=== PATIENT | female | born 1945 | race Caucasian/White ===

== ENCOUNTER → 2023-11-11 | Outpatient (CLI) | payer MEDICARE, SELFPAY ==
--- NOTE | 2023-11-11 08:16 | ECHOD_ITS ---
Reason For Study: Abnormal EKG Procedure This was a 2D Doppler, Color Flow transthoracic echocardiogram. Myocardial strain analysis was performed in this exam to aid in the assessment of cardiac function. Exam performed in department. Left Ventricle Normal LV size. Mid cavitary false tendon noted. The left ventricular ejection fraction is 60 %. Stage 1 diastolic dysfunction. No regional wall motion abnormalities noted. Right Ventricle Normal RV size. Normal systolic function. Atria Normal left atrium. Normal right atrium. Mitral Valve There is mild to moderate mitral annular calcification. Mild (1+) eccentric mitral valve insufficiency. Tricuspid Valve Normal tricuspid valve. Mild (1+) tricuspid valve insufficiency. Pulmonary artery systolic pressure is 34 mmHg. Aortic Valve Trisinus/trileaflet aortic valve. Mild focal aortic valve calcification. Pulmonic Valve Normal pulmonic valve. Great Vessels Normal aortic root. The pulmonary artery is normal size. Inferior vena cava collapse with respiration. Pericardium/Pleural No pericardial effusion. MMode/2D Measurements & Calculations LVIDd: 4.9 cm IVSd: 0.94 cm LVOT diam: 2.0 cm LVIDs: 3.4 cm LVPWd: 0.76 cm LVOT area: 3.0 cm2 RVDd: 4.2 cm FS: 30.4 % Ao root diam: 3.2 cm LAV(MOD-bp): 58.2 ml LVAd ap4: 24.1 cm2 LA dimension: 3.0 cm LAV(MOD-bp) Indexed: 32.0 ml/m2 LVLd ap4: 7.5 cm LAV(MOD-sp2): 62.0 ml EDV(MOD-sp4): 63.1 ml LAV(MOD-sp4): 52.1 ml EDV(sp4-el): 65.9 ml LVAs ap4: 14.6 cm2 LVLs ap4: 6.4 cm ESV(MOD-sp4): 28.0 ml ESV(sp4-el): 28.5 ml EF(MOD-sp4): 55.7 % EF(sp4-el): 56.7 % SV(MOD-sp4): 35.2 ml SV(sp4-el): 37.4 ml LA A4 area: 19.6 cm2 RA A4 area: 17.4 cm2 TAPSE: 2.5 cm Time Measurements MV dec time: 0.25 sec Doppler Measurements & Calculations MV E max cesar: 82.0 cm/sec Lat Peak E' Cesar: 12.1 cm/sec Med Peak E' Cesar: 8.4 cm/sec MV A max cesar: 90.3 cm/sec E/E' lat: 6.8 E/E' med: 9.8 MV E/A: 0.91 MV V2 max: 97.9 cm/sec MV P1/2t max cesar: 90.8 cm/sec Ao V2 max: 183.6 cm/sec MV max P.8 mmHg MV P1/2t: 91.3 msec Ao max P.5 mmHg MV V2 mean: 57.7 cm/sec Ao V2 mean: 133.4 cm/sec MV mean P.5 mmHg MV dec slope: 291.2 cm/sec2 Ao mean P.1 mmHg MV V2 VTI: 36.1 cm MVA(P1/2t): 2.4 cm2 Ao V2 VTI: 46.4 cm AV (velocity ratio): 0.73 MVA(VTI): 2.8 cm2 PRISCILLA(I,D): 2.2 cm2 PRISCILLA(V,D): 2.1 cm2 LV V1 max: 130.3 cm/sec MR max cesar: 516.8 cm/sec SV(LVOT): 102.2 ml LV V1 max P.8 mmHg MR max P.8 mmHg LV V1 mean P.5 mmHg MR mean cesar: 378.2 cm/sec LV V1 mean: 100.9 cm/sec MR mean P.9 mmHg LV V1 VTI: 33.8 cm MR VTI: 210.1 cm PA V2 max: 130.5 cm/sec TR max cesar: 275.9 cm/sec PA max PG (full): 3.9 mmHg TR max P.4 mmHg PA V2 mean: 86.3 cm/sec PA mean PG (full): 1.7 mmHg ECHO/Echo Complete Interpretation Summary Normal LV size. The left ventricular ejection fraction is 60 %. Mid cavitary false tendon noted. Stage 1 diastolic dysfunction. Mild (1+) eccentric mitral valve insufficiency. Ordering Physician: Rayray Rodriges Referring Physician: Rayray Rodriges Performed By: Shon Alvarado RCS
--- NOTE | 2023-11-11 16:26 | STRESSREP ---
Stress Test Report Pharmacologic myocardial perfusion stress test. 78-year-old lady with a history of preoperative cardiac evaluation left bundle branch block Resting EKG demonstrates sinus bradycardia with a rate of 56 bpm. Left bundle branch block is noted. Resting blood pressure is 122/70 mmHg. 0.4 mg of regadenoson was infused per usual protocol followed by rapid intravenous saline flush injection. Continuous EKG monitoring was performed. The maximum heart rate was 79 bpm which was 55% of max impacted heart rate the maximum workload was 1 metabolic equivalent. At rest there were no ST or T wave changes noted to suggest ischemia and at peak infusion nonspecific ST changes were noted which did not meet the criteria for ischemia. No clinical angina is noted. The final blood pressure was 116/62 mmHg. Myocardial perfusion protocol. 13.2 mCi of technetium 99m sestamibi was injected at rest. 0.4 mg of regadenoson was infused per usual protocol. At peak infusion 42 mCi of technetium 99m sestamibi was injected stress images were obtained stress and rest images were reconstructed and compared in the short axis vertical long and horizontal long axis. Gated images were also obtained. Perfusion SPECT analysis: Review of the stress images demonstrate normal uptake of tracer noted in all areas of the myocardium. There is a small portion in the anterior septal wall with reduced perfusion noted which appears to remain similarly during the resting images. The above is likely suggestive of anteroseptal perfusion defect due to left bundle branch block pattern. No obvious reversibility or ischemia or infarct is noted. Gated SPECT analysis: The gated ejection fraction is 76%. Conclusion: Normal pharmacologic myocardial perfusion stress test. Preserved ejection fraction.
== END | disposition home or self-care (01) ==
PROVIDERS: PCP Family Medicine; Referring Provider Internal Medicine Cardiovascular Disease; Visit Provider Internal Medicine Cardiovascular Disease
DX: Z01.810 Encounter for preprocedural cardiovascular examination (principal); R94.31 Abnormal electrocardiogram [ECG] [EKG]; I44.7 Left bundle-branch block, unspecified
CPT/HCPCS: 78452; 93017; 93306; A9500; A4216; J2785